=== PATIENT | male | born 1990 ===

== ENCOUNTER 2018-12-11 20:19 | Emergency (ER) | payer MEDICAID, OTHER ==
[~2018-12-11] VITALS: Wt 65.7 kg
[2018-12-11 20:30] VITALS: BP 149/67; PULSE 70; RESP 22
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
[2018-12-11] MEDS ORDERED: IBUPROFEN 600 MG TAB PO ONE (23:00)
== END 2018-12-12 02:39 | disposition left against medical advice (07) ==
LOC: FTE 20:19
DX: S02.2XXA Fracture of nasal bones, initial encounter for closed fracture (principal); V49.50XA Passenger injured in collision with unspecified motor vehicles in traffic accident, initial encounter
CPT/HCPCS: 70140; Z7502